=== PATIENT | female | born 1955 | race Caucasian/White ===

== ENCOUNTER 2018-10-03 05:24 | Emergency (ER) | payer BC ==
[2018-10-03 06:24] VITALS: TEMP 98; BMI 21.6
--- NOTE | 2018-10-03 07:23 | PDOC ---
History of Present Illness - History of Present Illness Initial Comments: The patient is a 63 year old female, with a significant PMH of HTN and ulcerative colitis, who presents to the emergency department today s/p overdose on Olmesartan. Patient notes at 5:30am this morning she went to take her Paxil ( recommended dosage is 3 tablets/day), when she grabbed her Olmesartan instead. Since the medication bottles look similar, patient mistook the wrong one and accidentally took 3 tablets of Olmesartan (5mgs is baseline, and patient took 15mg) this morning. She notes that she is asymptomatic at this time, but was anxious and came to the ED today to make sure she will be okay. The patient denies chest pain, shortness of breath, headache and dizziness. Denies fever, chills, nausea, vomit, diarrhea and constipation. Denies dysuria, frequency, urgency and hematuria. Allergies: NKA Past surgical history: Colon resection Social history: No reported PCP: Dr. Declan Christina 10/03/18 09:13 <Danita Castillo - Last Filed: 10/03/18 16:49> - General History Source: Patient Exam Limitations: No Limitations <Dahlia Edwards - Last Filed: 10/05/18 09:31> - General Chief Complaint: Overdose Stated Complaint: MEDICATION PROBLEM Time Seen by Provider: 10/03/18 07:22 Past History <Danita Castillo - Last Filed: 10/03/18 16:49> - Suicide/Smoking/Psychosocial Hx Smoking History: Never smoked Have you smoked in the past 12 months: No Information on smoking cessation initiated: No Hx Alcohol Use: No Drug/Substance Use Hx: No <Dahlia Edwards - Last Filed: 10/05/18 09:31> - Past Medical History Allergies/Adverse Reactions: Allergies Allergy/AdvReac Type Severity Reaction Status Date / Time Penicillins Allergy Intermediate Hives Verified 10/03/18 06:11 azithromycin Allergy Verified 10/03/18 06:11 Review of Systems - Review of Systems Comments:: GENERAL/CONSTITUTIONAL: +Anxious. No fever or chills. No weakness. HEAD, EYES, EARS, NOSE AND THROAT: No change in vision. No ear pain or discharge. No sore throat. CARDIOVASCULAR: No chest pain or shortness of breath. RESPIRATORY: No cough, wheezing, or hemoptysis. GASTROINTESTINAL: No nausea, vomiting, diarrhea or constipation. GENITOURINARY: No dysuria, frequency, or change in urination. MUSCULOSKELETAL: No joint or muscle swelling or pain. No neck or back pain. SKIN: No rash NEUROLOGIC: No headache, vertigo, loss of consciousness, or change in strength/ sensation. ENDOCRINE: No increased thirst. No abnormal weight change. HEMATOLOGIC/LYMPHATIC: No anemia, easy bleeding, or history of blood clots. ALLERGIC/IMMUNOLOGIC: No hives or skin allergy. 10/03/18 09:13 <Danita Castillo - Last Filed: 10/03/18 16:49> *Physical Exam - Vital Signs Last Vital Signs Temp Pulse Resp BP Pulse Ox 98.0 F 87 18 123/83 100 10/03/18 06:07 10/03/18 07:49 10/03/18 07:49 10/03/18 07:49 10/03/18 07:49 - Physical Exam Comments: GENERAL: The patient is in no acute distress. HEAD: Normal with no signs of trauma. EYES: PERRLA, EOMI, sclera anicteric, conjunctiva clear. ENT: Ears normal, nares patent, oropharynx clear without exudates. Moist mucous membranes. NECK: Normal range of motion, supple without lymphadenopathy, JVD, or masses. LUNGS: Breath sounds equal, clear to auscultation bilaterally. No wheezes, and no crackles. HEART:Regular rate and rhythm, normal S1 and S2 without murmur, rub or gallop. ABDOMEN: Soft, nontender, normoactive bowel sounds. No guarding, no rebound. No masses palpable. EXTREMITIES: Normal range of motion, no edema. No clubbing or cyanosis. No erythema, or tenderness. NEUROLOGICAL: Cranial nerves II through XII grossly intact. Normal speech. No focal neurological deficits. MUSCULOSKELETAL: Back non-tender to palpation, no CVA tenderness SKIN: Warm, Dry, normal turgor, no rashes or lesions noted. 10/03/18 09:13 <Danita Castillo - Last Filed: 10/03/18 16:49> - Vital Signs Last Vital Signs Temp Pulse Resp BP Pulse Ox 98.0 F 100 H 17 146/73 97 10/03/18 06:07 10/03/18 06:07 10/03/18 06:07 10/03/18 06:07 10/03/18 06:07 <Dahlia Edwards - Last Filed: 10/05/18 09:31> Moderate Sedation - Procedure Monitoring Vital Signs: Procedure Monitoring Vital Signs Temperature 98.0 F 10/03/18 06:07 Pulse Rate 87 10/03/18 07:49 Respiratory Rate 18 10/03/18 07:49 Blood Pressure 123/83 10/03/18 07:49 O2 Sat by Pulse Oximetry (%) 100 10/03/18 07:49 <Danita Castillo - Last Filed: 10/03/18 16:49> - Procedure Monitoring Vital Signs: Procedure Monitoring Vital Signs Temperature 98.0 F 10/03/18 06:07 Pulse Rate 100 H 10/03/18 06:07 Respiratory Rate 17 10/03/18 06:07 Blood Pressure 146/73 10/03/18 06:07 O2 Sat by Pulse Oximetry (%) 97 10/03/18 06:07 <Dahlia Edwards - Last Filed: 10/05/18 09:31> Heart Score/ECG Review - ECG Intrepretation Comment:: Sinus rhythm with 1st degree AV block. Septal infarct, age undetermined. Abnormal ECG. 10/03/18 12:04 <Danita Castillo - Last Filed: 10/03/18 16:49> ED Treatment Course - LABORATORY CBC & Chemistry Diagram: 10/03/18 08:40 10/03/18 08:40 - ADDITIONAL ORDERS Additional order review: 10/03/18 08:40 RBC 4.47 MCV 92.2 MCHC 34.4 RDW 12.8 MPV 7.2 L Neutrophils % 84.7 H Lymphocytes % 10.1 Monocytes % 3.9 Eosinophils % 0.6 Basophils % 0.7 - Consult/PCP Time Called: 10:11 (spoke with Dr. Christina concerning patient's care ) <Danita Castillo - Last Filed: 10/03/18 16:49> - LABORATORY CBC & Chemistry Diagram: 10/03/18 08:40 10/03/18 08:40 <Dahlia Edwards - Last Filed: 10/05/18 09:31> Medical Decision Making - Medical Decision Making 10/03/18 08:09 63 yo F s/p ingestion of 3 olmesartan tabs instead of her standard dose of 1 tab of 5mg No lightheadedness, or dizziness no chest pain No palpitations No diaphoresis, nausea or vomiting Pt is actually anxious BP typically is 110s/80s Initially in the ER it was 140s/90 Case reviewed with poison control Up to 4 tablets ok Must be observed 4-6 hours after ingestion will do basic labs Will do EKG 10/03/18 08:25 10/03/18 10:12 Laboratory Tests 10/03/18 10/03/18 08:40 08:40 WBC 8.2 Hgb 14.2 Hct 41.2 Plt Count 277 Sodium 139 Potassium 4.7 Chloride 107 Carbon Dioxide 25 BUN 24 H Creatinine 0.9 Random Glucose 92 Creatine Kinase 62 Troponin I < 0.02 Call placed to Pt pmd He is aware of what is happening Will plan to discharge to home 10/03/18 10:34 Vitals: Flat - 113/59, 76 Sitting - 111/69 Standing - 99/71 I have had a long conversation with this patient re: orthostasis and the importance of changing positions slowly When going for laying to standing, she must dangle her legs for a moment Pt will follow up with PMD before the end of the week <Dahlia Edwards - Last Filed: 10/05/18 09:31> *DC/Admit/Observation/Transfer - Attestations Scribe Attestion: Documentation prepared by MELLISA Leslie, acting as medical claims representative for Dahlia Edwards MD/DO. 10/03/18 09:14 <Danita Castillo - Last Filed: 10/03/18 16:49> - Discharge Dispostion Decision to Admit order: No <Dahlia Edwards - Last Filed: 10/05/18 09:31> Diagnosis at time of Disposition: Medication administered in error Qualifiers: Encounter type: initial encounter Injury intent: accidental or unintentional Qualified Code(s): T50.901A - Poisoning by unspecified drugs, medicaments and biological substances, accidental (unintentional), initial encounter - Discharge Dispostion Disposition: HOME Condition at time of disposition: Stable - Patient Instructions Printed Discharge Instructions: DI for Safely Taking and Storing Medications - - Adults Additional Instructions: Ms Alo Rosa Thank you for coming in to the ER today I am sorry that you accidentally took too much of your blood pressure medication Please monitor yourself for dizziness, weakness Please avoid rapidly standing up, please slowly change positions Please be sure to separate your medications to avoid mixing them up Please call your doctor for follow up before the end of the week
[2018-10-03 08:45] LABS: BASO % 0.7 % (0-2.0); EOS % 0.6 % (0-4.5); HEMATOCRIT 41.2 % (32.4-45.2); HEMOGLOBIN 14.2 GM/dL (10.7-15.3); LYMPH % 10.1 % (8-40); MCH 31.7 pg (25.7-33.7); MCHC 34.4 g/dl (32.0-36.0); MEAN CELL VOLUME 92.2 fl (80-96); MEAN PLT VOLUME 7.2 fl (7.5-11.1); MONO % 3.9 % (3.8-10.2); NEUT % 84.7 % (42.8-82.8); PLATELET COUNT 277 K/MM3 (134-434); RBC 4.47 M/mm3 (3.60-5.2); RDW 12.8 % (11.6-15.6); WHITE BLOOD COUNT 8.2 K/mm3 (4.0-10.0)
[2018-10-03 09:15] LABS: ALBUMIN 3.6 g/dl (3.4-5.0); ALK PHOS 121 U/L (45-117); ANION GAP 8 MMOL/L (8-16); BILIRUBIN,TOTAL 0.4 mg/dL (0.2-1); BLOOD UREA NITROGEN 24 mg/dL (7-18); CALCIUM 8.4 mg/dL (8.5-10.1); CHLORIDE 107 mmol/L (98-107); CO2 25 mmol/L (21-32); CREATININE 0.9 mg/dL (0.55-1.3); GLUCOSE,RANDOM 92 mg/dL (74-106); POTASSIUM 4.7 mmol/L (3.5-5.1); SGOT/AST 25 U/L (15-37); SGPT/ALT 35 U/L (13-61); SODIUM 139 mmol/L (136-145); TOT PROT 6.9 g/dl (6.4-8.2)
[2018-10-03 11:13] VITALS: BP 113/59; PULSE 76
--- NOTE | 2018-10-03 14:42 | EKG ---
Test Reason : Blood Pressure : / mmHG Vent. Rate : 073 BPM Atrial Rate : 073 BPM P-R Int : 220 ms QRS Dur : 088 ms QT Int : 372 ms P-R-T Axes : 057 -28 063 degrees QTc Int : 409 ms SINUS RHYTHM WITH 1ST DEGREE A-V BLOCK SEPTAL INFARCT , AGE UNDETERMINED ABNORMAL ECG WHEN COMPARED WITH ECG OF 01-MAR-2009 23:54, HI INTERVAL HAS INCREASED SEPTAL INFARCT IS NOW PRESENT NONSPECIFIC T WAVE ABNORMALITY NO LONGER EVIDENT IN LATERAL LEADS QT HAS SHORTENED Confirmed by OLAMIDE LIMA, KORI ([id number]) on 10/03/2018 2:42:15 PM Referred By: Confirmed By:KORI QUIÑONEZ MD
== END 2018-10-03 10:45 | disposition home or self-care (01) ==
LOC: JER 05:24
DX: T46.5X1A Poisoning by other antihypertensive drugs, accidental (unintentional), initial encounter (principal)
CPT/HCPCS: 36415; 80053; 82550; 84484; 85025; 93005; 93010; 99283-25

== ENCOUNTER 2024-11-08 02:05 | Emergency (ER) | payer BC ==
[2024-11-08 02:15] VITALS: BMI 21.2
[2024-11-08] MEDS ORDERED: ACETAMINOPHEN INJECTION 100 ML ONE (02:46)
[2024-11-08] MEDS ORDERED: ONDANSETRON 4 MG/2 ML VIAL ONE (02:46)
[2024-11-08] MEDS: ACETAMINOPHEN 1000 MG/100 ML BAG IVPB ONE (03:09)
[2024-11-08] MEDS: SODIUM CHLORIDE 0.9% 500 ML INFUS.BAG IV ONE ×2 (03:09→06:31)
[2024-11-08] MEDS: ONDANSETRON 4 MG/2 ML VIAL IVPB ONE (03:10)
[2024-11-08 03:14] LABS: HEMATOCRIT 45.5 % (32.4-45.2); HEMOGLOBIN 15.2 GM/dL (10.7-15.3); MCH 30.5 pg (25.7-33.7); MCHC 33.3 g/dl (32.0-36.0); MEAN CELL VOLUME 91.4 fl (80-96); MEAN PLT VOLUME 7.7 fl (7.5-11.1); PLATELET COUNT 383 10^3/uL (134-434); RBC 4.98 M/mm3 (3.60-5.2); RDW 13.1 % (11.6-15.6); WHITE BLOOD COUNT 20.2 K/mm3 (4.0-10.0)
[2024-11-08 03:27] LABS: INR 0.99 (0.83-1.09); PROTHROMBIN TIME (PATIENT) 10.9 SEC (9.7-13.0)
[2024-11-08 03:32] LABS: POTASSIUM 4.3 mmol/L (3.5-5.1)
[2024-11-08 03:34] LABS: ALBUMIN 4.1 g/dl (3.4-5.0); CALCIUM 10.4 mg/dL (8.5-10.1)
[2024-11-08 03:35] LABS: MAGNESIUM 1.8 mg/dL (1.8-2.4)
[2024-11-08 03:38] LABS: CREATININE 1.7 mg/dL (0.55-1.3); PHOSPHOROUS 2.8 mg/dL (2.5-4.9)
[2024-11-08 03:39] LABS: BILIRUBIN,TOTAL 1.1 mg/dL (0.2-1); TOT PROT 8.1 g/dl (6.4-8.2)
[2024-11-08 03:57] LABS: LACTIC ACID 3.8 mmol/L (0.4-2.0)
[2024-11-08 04:08] LABS: MACROCYTOSIS 0
[2024-11-08 04:46] VITALS: RESP 14
[2024-11-08 06:51] VITALS: TEMP 98.8
[2024-11-08 07:05] LABS: URINE APPEARANCE CLEAR; URINE COLOR YELLOW; URINE GLUCOSE (UA) NEGATIVE (NEGATIVE)
[2024-11-08 07:06] LABS: PH,URINE 5.5 (5.0-8.0); URINE BILIRUBIN NEGATIVE (NEGATIVE); URINE KETONE NEGATIVE (NEGATIVE); URINE LEUK ESTERASE NEGATIVE (NEGATIVE); URINE NITRITE NEGATIVE (NEGATIVE); URINE PROTEIN 30 (NEGATIVE); URINE UROBILINOGEN 0.2 mg/dL (0.2-1.0)
[2024-11-08 07:07] LABS: EPI CELLS 26.7 /uL (0-25.1); HYALINE CASTS 3.01 /uL (0-3.1); URINE BACTERIA 25.5 /uL (0-1359); URINE RBC 19.8 /uL (0-23.9); URINE WBC 371.4 /uL (0-25.8)
[2024-11-08 07:29] LABS: YEAST NONE SEEN (NEGATIVE)
[2024-11-08 09:37] VITALS: BP 103/62; PULSE 77
== END 2024-11-08 10:35 | disposition home or self-care (01) ==
LOC: JER 02:05
PROC: 3E033NZ Introduction of Analgesics, Hypnotics, Sedatives into Peripheral Vein, Percutaneous Approach (ICD-10-PCS; principal; 2024-11-08)
PROC: 3E033GC Introduction of Other Therapeutic Substance into Peripheral Vein, Percutaneous Approach (ICD-10-PCS; 2024-11-08)
DX: R11.2 Nausea with vomiting, unspecified (principal); R19.7 Diarrhea, unspecified; I95.9 Hypotension, unspecified; Z20.822 Contact with and (suspected) exposure to COVID-19
CPT/HCPCS: 0241U-QW; 36415; 71045-TC-FY; 74177-TC; 80053; 81003; 83605; 83690; 83735; 84100; 85025; 85610; 85730; 87086; 93005; 93010; 99285-25; J0131; Q9967